=== PATIENT | male | born 1960 | race Caucasian/White ===

== ENCOUNTER → 2017-04-15 | Day surgery (SDC) | payer OTHER ==
[2017-03-25 09:50] VITALS: Ht 177.8 cm; Wt 136.4 kg
[~2017-04-15] VITALS: Ht 177.8 cm; Wt 136.4 kg
[~2017-04-15] MED LIST: ALLOPURINOL PO; DICL50TA3 PO; GABA800T PO; HYG/25 PO; LOVA20TA4 PO; SYMIN160 INH
== END | disposition home or self-care (01) ==
LOC: C.PAT 13:06 → EDSTATUS 15:30
PROVIDERS: ATTEND Physical Medicine & Rehabilitation
DX: M54.16 Radiculopathy, lumbar region (principal); Z53.20 Procedure and treatment not carried out because of patient's decision for unspecified reasons

== ENCOUNTER → 2017-05-14 | Outpatient (CLI) | payer OTHER | END | disposition home or self-care (01) | LOC: C.RDSM 11:07 | PROVIDERS: ATTEND Physical Medicine & Rehabilitation | DX: M25.561 Pain in right knee (principal) ==